=== PATIENT | male | born 1945 | race Caucasian/White ===

== ENCOUNTER → 2023-08-11 02:34 | Outpatient (CLI) | payer OTHER, SELFPAY ==
--- NOTE | 2023-08-11 08:19 | DI.CT_ITS ---
Exam(s) CT HEAD FACIAL WO EXAM: CT HEAD FACIAL WO CLINICAL HISTORY: head injury, fall, facial head strike,S09.90XA. TECHNIQUE: Imaging Protocol: Axial computed tomography images with coronal and sagittal reformatted images were created and reviewed COMPARISON: No exams were available for comparison FINDINGS: BRAIN: There are no skull fractures nor fluid in the visualized paranasal sinuses. There is no evidence of intracranial hemorrhage, mass effect, or shift of midline structures. There are no extra-axial fluid collections. The ventricles are not enlarged or shifted and there is no blo od within the ventricular system nor within the basal cisterns. MAXILLOFACIAL CT SCAN: There is no evidence of facial fractures nor fluid in the visualized paranasal sinuses. There is no evidence of orbital blowout fracture. IMPRESSION: No acute intracranial findings on this noninfused CT scan of the brain. No evidence of facial bone fractures nor orbital fractures. RADIATION DOSE DELIVERED: 1,172.83mGy.cm Total DLP DATA REPOSITORY: All CT scans at this facility are submitted to the National Radiology Data Registry (NRDR) Dose Index Registry (DIR) with the [employer] ([employer]). RADIATION OPTIMIZATION: All CT scans at this facility use at least one of these dose optimization te chniques: automated exposure control; mA and/or kV adjustment per patient size (includes targeted exa ms where dose is matched to clinical indication); or iterative reconstruction.
== END ==
PROVIDERS: Visit Provider Physician Assistant
DX: S09.90XA Unspecified injury of head, initial encounter (principal); W19.XXXA Unspecified fall, initial encounter; X58.XXXA Exposure to other specified factors, initial encounter
CPT/HCPCS: 70450; 70486

== ENCOUNTER 2025-10-05 11:13 | Outpatient (CLI) | payer OTHER, SELFPAY ==
--- NOTE | 2025-10-05 11:00 | RT.EKG_ITS ---
APPROVED REPORT Exam: Resting ECG Reason for Exam: chest pain Patient Location: O HR:65 bpm ECG Measurements Heart Rate 65 AXIS OK 165 P 76 QRSd 92 QRS 32 QT 426 T 78 QTc 443 Conclusion Sinus rhythm...normal P axis, V-rate 50- 99 Left ventricular hypertrophy...multiple voltage criteria
== END 2025-10-05 11:14 | disposition home or self-care (01) ==
LOC: DI.CM 11:14
PROVIDERS: Visit Provider Physician Assistant Medical
DX: R07.9 Chest pain, unspecified (principal)
CPT/HCPCS: 93010

== ENCOUNTER 2025-10-05 11:46 | Emergency (ER) | payer OTHER, SELFPAY ==
[2025-10-05] VITALS (24 sets, daily range): BP systolic 144–165; BP diastolic 58–103; PULSE 59–72; RESP 9–21; O2SAT 95–97
--- NOTE | 2025-10-05 11:45 | RT.EKG_ITS ---
APPROVED REPORT Exam: Resting ECG Reason for Exam: palpitations,chest discomfort Patient Location: E HR:61 bpm ECG Measurements Heart Rate 61 AXIS MD 164 P 52 QRSd 76 QRS 13 QT 427 T 65 QTc 432 Conclusion Sinus rhythm...normal P axis, V-rate 60- 99 Physician: No STEMI
--- NOTE | 2025-10-05 12:00 | DI.RAD_ITS ---
Exam(s) XR PORTABLE CHEST AP EXAM: XR PORTABLE CHEST AP CLINICAL HISTORY: chest pain TECHNIQUE: 2D digital imaging was performed. COMPARISON: No exams were available for comparison FINDINGS: Overlying monitoring leads. LUNGS: Mild chronic interstitial changes. No infiltrate or pulmonary edema. Biapical scarring, right greater than left. No effusion or pneumothorax. HEART: Normal size. AORTA: Normal diameter. BONES: Old right rib fractures. Old right clavicle fracture. Fractures of the lateral left 8th and 9th ribs are not well seen and are of indeterminate age. Soft tissues: Unremarkable. IMPRESSION: No acute cardiopulmonary findings. Old right rib fractures and old right clavicle fracture. Fractures of the left 8th and 9th ribs of indeterminate age. The preliminary [facility] report was reviewed. DATA REPOSITORY: RADIATION DOSE DELIVERED:
[2025-10-05 12:42] LABS: Abs Immature Grans 0.01 10^3/uL (0.0-0.06); HCT 43.1 % (40.0-50.0); HGB 14.3 g/dL (13.5-17.5); Immature Grans % 0.2 %; MCH 29.7 pg (27.0-33.0); MCHC 33.2 % (32.0-36.0); MCV 89 fL (80-95); MPV 8.8 fL (8.0-11.0); Platelet Count 165 10^3/uL (130-400); RBC 4.82 10^6/uL (4.36-5.78); RDW 12.6 % (11.8-14.1); RDW-SD 41.4 fL; WBC 5.39 10^3/uL (4.4-10.8)
[2025-10-05 12:58] LABS: Troponin I 27 ng/L (<54)
[2025-10-05 12:59] LABS: ALT 23 U/L (10-49); AST 36 U/L (<34); Albumin 4.2 g/dL (3.4-5.0); Alkaline Phosphatase 91 U/L (46-116); Anion Gap 8.1 mmol/L (3-11); BUN 17 mg/dL (9-23); Bilirubin, Total 1.40 mg/dL (0.2-1.2); CO2 27.9 mmol/L (20.0-31.0); Calcium 9.4 mg/dL (8.3-10.6); Chloride 106 mmol/L (98-107); Glucose 92 mg/dL (74-106); Potassium 4.1 mmol/L (3.5-5.1); Sodium 142 mmol/L (136-145); Total Protein 7.3 g/dL (5.7-8.2)
[2025-10-05 13:02] LABS: TSH (W/Ref FT4) 1.58 uIU/mL (0.55-4.78)
--- NOTE | 2025-10-05 13:21 | DI.[facility]_ITS ---
PROCEDURE INFORMATION: Exam: XR Chest Exam date and time: 10/05/2025 12:49 PM Age: 80 years old Clinical indication: Other: Chest pain TECHNIQUE: Imaging protocol: Radiologic exam of the chest. Views: 1 view. COMPARISON: No relevant prior studies available. FINDINGS: Tubes, catheters and devices: EKG wires overlie the chest. Lungs: No focal infiltrate. Pleural spaces: Right apical pleural thickening. Heart/Mediastinum: Unremarkable. No cardiomegaly. Bones/joints: Age indeterminate right posterior 3rd through 7th rib fractures. Cachexia. Old right clavicular fracture. Age indeterminate left lateral 8th and 9th rib fractures. IMPRESSION: 1. No acute cardiopulmonary findings. 2. Age indeterminate right and left rib a fractures. Dictated and Authenticated by: Amara Cooper MD. Orderin Una Marie MD
[2025-10-05 13:48] LABS: Troponin I 28 ng/L (<54)
--- NOTE | 2025-10-05 14:06 | W.ED.GENAD ---
Discharge Plan Disposition Patient Disposition: Home Condition: Good Discharge Details Clinical Impression: Chest pain Primary Care Provider: DeandraLocal ED Provider: Frank Heart Home Meds and New Rx's Prescriptions: No Action aspirin 81 mg tablet,delayed release (DR/EC) 81 mg PO DAILY atorvastatin 80 mg tablet 80 mg PO DAILY bupropion HCl 100 mg tablet sustained-release 12 hr 50 mg PO DAILY melatonin 3 mg tablet 3 mg PO HS PRN acetaminophen 500 mg tablet 500 mg PO Q6H PRN Discharge Instructions Instructions: Chest Pain, Adult ED Additional Instructions: At this time your laboratory workup is returned with no significant abnormalities, no signs of heart attack, thyroid dysfunction, anemia or other significant pathology. Please follow-up closely with your nuclear physicist. Try to decrease the stressors that have been plaguing you as of late. If you notice any worsening of your symptoms, or any new symptoms such as vomiting, diarrhea, fever, chills, shortness of breath, chest pain, numbness, weakness, or fainting , please return immediately to the emergency department for reevaluation. Please follow up with your primary care provider as soon as possible for reassessment and reevaluation. As always, it was a pleasure participating in your medical care today. Stand Alone Forms: Portal Information HPI General Date/Time Provider Initiated Documentation: 10/05/25 11:55. HPI Narrative: 80-year-old male with a past medical history of prostate cancer, bladder cancer, both of which are in the distant past, diabetes mellitus, previous cardiac stent for coronary artery disease in 2018, who presents today for evaluation of palpitations and chest tightness. Patient states that this evening at around 1 AM he woke up and he felt notable atypical palpitations, he had associated chest pressure and tightness. He took 2 nitroglycerin and the pain went away completely within the course of a minute. He denies any tearing or ripping sensation. No syncope. He denies having any symptoms like this ever before, including before or after his stent in 2018. He denies any medication changes or missed medications. He denies any other complaints. He does admit to a significant amount of increase stressors over the last 24 to 72 hours, with confrontations with neighbors, multiple challenges happening at his house here. Of note the patient does live in [place] and is here visiting at his second home. Patient denies any complaints of chest pain at this time. He states he otherwise feels well. He was seen at urgent care, and then referred to the ED for further evaluation. Related Data Home Medications Medication Instructions Recorded Confirmed aspirin 81 mg tablet,delayed 81 mg PO DAILY 08/08/23 10/05/25 release atorvastatin 80 mg tablet 80 mg PO DAILY 08/08/23 10/05/25 acetaminophen 500 mg tablet 500 mg PO Q6H PRN 10/05/25 10/05/25 bupropion HCl 100 mg tablet,12 hr 50 mg PO DAILY 10/05/25 10/05/25 sustained-release melatonin 3 mg tablet 3 mg PO HS PRN 10/05/25 10/05/25 Allergies Allergy/AdvReac Type Severity Reaction Status Date / Time No Known Allergies Allergy Verified 10/05/25 11:59 General Stated Complaint: Chest Pain GUERRERO: 3 Exam Narrative Exam Narrative: 1.Const: Well-nourished, Well-developed, appearing stated age 2.Eyes: PERRL, no conjunctival injection, and symmetrical lids. 3.ENT: Atraumatic external nose and ears. Moist MM. Neck: Symmetric, trachea midline, No thyromegaly. 4.CVS: +S1/S2, Peripheral pulses 2+ and equal in all extremities. Brisk capillary refill in all extremities. 5.RESP: Unlabored respiratory effort. Clear to auscultation bilaterally. No wheezes rales or rhonchi 6.GI: Soft, Nontender/Nondistended, No hepatosplenomegaly. No guarding or rebound. 7.MSK: Normocephalic/Atraumatic, Extremities w/o deformity or ttp No cyanosis or clubbing, Normal movement of all extremities 8.Skin: Warm, Dry. No rashes or lesions. 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 Sensation grossly intact, no focal neurologic deficits. 10.Psych: (AAO) x3. Appropriate mood and affect Course Vital Signs Vital signs: Vital Signs Pulse 68 10/05/25 11:56 Respiratory Rate 18 10/05/25 11:56 Blood Pressure 152/103 H 10/05/25 11:56 Pulse Oximetry 95 10/05/25 11:56 Pulse 61 10/05/25 13:31 Pulse 63 10/05/25 13:31 Respiratory Rate 17 10/05/25 13:31 Respiratory Effort Normal, Non-Labored 11/22/25 12:04 Respiratory Depth Normal 10/05/25 12:04 Respiratory Pattern Normal 10/05/25 12:04 Blood Pressure 147/69 H 10/05/25 13:31 Blood Pressure Mean 94 10/05/25 13:31 Pulse Oximetry 97 10/05/25 12:20 Lab/Test Results Lab/Test Results: Laboratory Tests Range/Units 10/05/25 10/05/25 12:33 13:26 WBC (4.4-10.8) 10^3/uL 5.39 RBC (4.36-5.78) 10^6/uL 4.82 Hgb (13.5-17.5) g/dL 14.3 Hct (40.0-50.0) % 43.1 MCV (80-95) fL 89 MCH (27.0-33.0) pg 29.7 MCHC (32.0-36.0) % 33.2 RDW (11.8-14.1) % 12.6 Plt Count (130-400) 10^3/uL 165 MPV (8.0-11.0) fL 8.8 Immature Gran % % 0.2 Neutrophils % % 68.9 Lymphocytes % % 15.6 Monocytes % % 13.0 Eosinophils % % 1.7 Basophils % % 0.6 Nucleated RBC % (0.0-0.3) % 0.0 Absolute Neutrophils (1.2-6.7) 10^3/uL 3.72 Absolute Lymphocytes (1.2-3.4) 10^3/uL 0.84 L Absolute Monocytes (0.1-0.8) 10^3/uL 0.70 Absolute Eosinophils (0.0-0.7) 10^3/uL 0.09 Absolute Basophils (0.0-0.2) 10^3/uL 0.03 Sodium (136-145) mmol/L 142 Potassium (3.5-5.1) mmol/L 4.1 Chloride (98-107) mmol/L 106 Carbon Dioxide (20.0-31.0) mmol/L 27.9 Anion Gap (3-11) mmol/L 8.1 BUN (9-23) mg/dL 17 Creatinine (0.73-1.18) mg/dL 0.94 Est GFR (CKD-EPI 2020) (mL/min/1.73m2) 76.88 Glucose (74-106) mg/dL 92 Calcium (8.3-10.6) mg/dL 9.4 Total Bilirubin (0.2-1.2) mg/dL 1.40 H AST (<34) U/L 36 H ALT (10-49) U/L 23 Alkaline Phosphatase (46-116) U/L 91 Troponin I (<54) ng/L 27 28 Total Protein (5.7-8.2) g/dL 7.3 Albumin (3.4-5.0) g/dL 4.2 TSH (0.55-4.78) uIU/mL 1.58 Medical Decision Making 80-year-old male with a past medical history of prostate cancer, bladder cancer, both of which are in the distant past, diabetes mellitus, previous cardiac stent for coronary artery disease in 2018, who presents today for evaluation of palpitations and chest tightness. Patient states that this evening at around 1 AM he woke up and he felt notable atypical palpitations, he had associated chest pressure and tightness. He took 2 nitroglycerin and the pain went away completely within the course of a minute. He denies any tearing or ripping sensation. No syncope. He denies having any symptoms like this ever before, including before or after his stent in 2018. He denies any medication changes or missed medications. He denies any other complaints. He does admit to a significant amount of increase stressors over the last 24 to 72 hours, with confrontations with neighbors, multiple challenges happening at his house here. Of note the patient does live in [place] and is here visiting at his second home. Patient denies any complaints of chest pain at this time. He states he otherwise feels well. He was seen at urgent care, and then referred to the ED for further evaluation. Exam demonstrates well-appearing male, no acute distress, vital signs normal, minimally hypertensive, EKG shows no evidence of ST elevations or depressions. No STEMI. No other concerning abnormality. Symptoms are atypical, but certainly could be reflective of ACS, esophageal spasm, or potentially Prinzmetal's angina as related to the stress, timing during the evening, and brevity of the symptomatology. We will get serial troponins, chest imaging, evaluate for concerning etiologies, monitor closely and reassess. 2:29 PM Patient's chest x-ray has returned showing some age-indeterminate rib fractures, but no pneumothorax or other abnormality. Serial troponins are normal, EKG normal, laboratory workup stable. Patient continues to feel well with no symptomatology otherwise. Symptomatology appears to be consistent with no on ACS scenario. Prinzmetal's angina is high in the differential with his resolution of pain and absence of cardiac troponinemia. Patient will be discharged home. Recommend close follow-up with cardiology. Discussed red flags which to return. I have extensively reviewed the treatment plan and discharge instructions with the patient. I have addressed all patient concerns at this time. The patient was made aware of what symptoms to monitor for that would warrant a return to the emergency department. Discussed the plan with the patient, they demonstrate verbal understanding and agreement with our assessment and plan at this time. The documentation in this chart was dictated using [employer] ([employer]) dictation software. Please excuse any dictation errors. FINDINGS: Tubes, catheters and devices: EKG wires overlie the chest. Lungs: No focal infiltrate. Pleural spaces: Right apical pleural thickening. Heart/Mediastinum: Unremarkable. No cardiomegaly. Bones/joints: Age indeterminate right posterior 3rd through 7th rib fractures. Cachexia. Old right clavicular fracture. Age indeterminate left lateral 8th and 9th rib fractures. IMPRESSION: 1. No acute cardiopulmonary findings. 2. Age indeterminate right and left rib a fractures. Thank you for allowing us to participate in the care of your patient. Dictated and Authenticated by: Amara Cooper MD 10/05/2025 1:21 PM Eastern Time ([place] & [place]) [facility] All Active Problems (Updated 10/05/25 @ 14:29 by Frank Heart DO) Chest pain (Acute) Social History Smoking/Tobacco Use Status: Never Smoking risk assessment performed?: Yes Alcohol Intake: former Drug use: Never Substance use type: does not use Do you feel safe at home: Yes Do you feel safe in your relationship?: Yes
== END 2025-10-05 14:37 | disposition home or self-care (01) ==
PROVIDERS: Emergency Provider Student in an Organized Health Care Education/Training Program
DX: R07.9 Chest pain, unspecified (principal); Z86.79 Personal history of other diseases of the circulatory system
CPT/HCPCS: 99284 ×2; 36415; 80053; 93005; 71045; 84443; 84484; 85025; 93010